=== PATIENT | male | born 1990 | race Caucasian/White ===

== ENCOUNTER 2019-03-25 18:19 | Emergency (ER) | payer BC, OTHER ==
[~2019-03-25] VITALS: Ht 182.9 cm; Wt 124.7 kg
[2019-03-25 18:35] VITALS: BP 140/89
== END 2019-03-25 20:23 | disposition home or self-care (01) ==
LOC: ER 18:22
DX: M79.641 Pain in right hand (principal); W22.8XXA Striking against or struck by other objects, initial encounter; Y93.89 Activity, other specified; Y99.8 Other external cause status; Y92.89 Other specified places as the place of occurrence of the external cause
CPT/HCPCS: 29125; 73130

== ENCOUNTER 2019-04-07 18:14 | Emergency (ER) | payer BC ==
[~2019-04-07] VITALS: Ht 182.9 cm; Wt 124.7 kg
[2019-04-08] MEDS ORDERED: VANCOMYCIN 1GM/250ML 250 ML IV ONE (00:45)
[2019-04-08] MEDS ORDERED: PIPERACILLIN-TAZOB 3.375GM 100 ML IV ONE (00:45)
[2019-04-08] MEDS ORDERED: HYDROcodone-ACET 10/325MG TAB PO ONE (00:45)
[2019-04-08 03:00] VITALS: BP 134/83
== END 2019-04-08 03:15 | disposition home or self-care (01) ==
LOC: ER 18:14
DX: L03.221 Cellulitis of neck (principal); J02.9 Acute pharyngitis, unspecified
CPT/HCPCS: 36415; 70490; 86308; 87040; 87070; 87880; 96365; 99284; J2543; J3370